=== PATIENT | male | born 1955 | race African-American/Black ===

== ENCOUNTER 2016-06-18 20:27 | Observation (INO) | payer OTHER ==
[~2016-06-18] VITALS: Ht 170.2 cm; Wt 72.6 kg
[2016-06-18 20:00] VITALS: BP 129/81
[~2016-06-18 20:27] MED LIST: ATOR10TA PO; Aspirin PO; BACI3.5O24 OP; HYDR-523 PO; KEPP500 PO; LISI-652 PO; OMEP20CA4 PO
[2016-06-18] MEDS ORDERED: ASPIRIN 81MG TABLET PO STA (22:47)
[2016-06-18] MEDS ORDERED: NITROGLYCERIN 0.4MG TABLET SL SL PRN (23:00)
[2016-06-18 23:41] LABS: BASOPHILS % 0.6 % (0.0-2.0); EOSINOPHILS % 3.9 % (0.0-5.0); HEMATOCRIT. 38.4 % (42.0-52.0); HEMOGLOBIN. 12.5 g/dL (14.0-18.0); LYMPHOCYTES % 49.1 % (20.0-50.0); MEAN CORPUSCULAR HEMOGLOBIN 28.7 pg (28.0-32.0); MEAN CORPUSCULAR HGB CONC 32.5 g/dL (31.0-37.0); MEAN CORPUSCULAR VOLUME 88.3 fL (80.0-94.0); MEAN PLATELET VOLUME 9.4 fl (7.4-10.4); MONOCYTES % 6.9 % (2.0-8.0); NEUTROPHILS % 39.5 % (40.0-76.0); PLATELET 216 x1000/uL (130-400); RED BLOOD CELL COUNT 4.34 mill/uL (4.7-6.1); RED CELL DISTRIBUTION WIDTH 14.6 % (11.6-14.6); WHITE BLOOD COUNT 5.3 x1000/uL (4.5-11.0)
[2016-06-18 23:53] LABS: PARTIAL THROMBOPLASTIN TIME 30.7 sec (24.0-34.0); PROTHROMBIN TIME 10.1 sec
[2016-06-18 23:57] LABS: ALANINE AMINOTRANSFERASE 14 IU/L (13-61); ALBUMIN 3.3 g/dL (3.4-5.0); ANION GAP 14; CALCIUM 9.1 mg/dL (8.5-10.1); CARBON DIOXIDE 24 mEq/L (21-32); CHLORIDE 109 mEq/L (98-107); INDEX HEMOLYSI 2 (1-3); INDEX ICTERIC 1 (1-4); INDEX LIPEMIC 1 (1-3); LIPASE 67 IU/L (73-393); NT PRO B-TYPE NATRIURETIC PEP 30 pg/mL (5-125); TROPONIN I < 0.02 ng/mL (0.00-0.04); UREA NITROGEN BLOOD 9 mg/dL (7-21); eGFR > 60 mL/min (>60)
[2016-06-19] MEDS ORDERED: MORPHINE SULFATE 4 MG/ML CPJ (NOT FOR IM USE) IV ONE
[2016-06-19] MEDS ORDERED: ONDANSETRON HCL 4MG/2ML VIAL IV ONE
[2016-06-19 03:30] VITALS: BP 110/78
[2016-06-19 08:00] VITALS: BP 111/78
[2016-06-19] MEDS ORDERED: ONDANSETRON HCL 4MG/2ML VIAL IV PRN (08:45)
[2016-06-19] MEDS ORDERED: DEXTROSE 50% WATER 50ML SYRINGE IV PRN (08:45)
[2016-06-19] MEDS ORDERED: CLONIDINE 0.1MG TABLET PO PRN (08:45)
[2016-06-19] MEDS: INSULIN LISPRO 100 UNITS/ML SUBCUT SCH ×4 (08:58→20:36)
[2016-06-19] MEDS: ENOXAPARIN 40MG/0.4ML SYR SUBCUT SCH (09:42)
[2016-06-19] MEDS: ASPIRIN 81MG TABLET PO SCH (09:42)
[2016-06-19] MEDS: HYDROMORPHONE HCL/PF 2MG/ML CPJ IV PRN ×2 (09:43→20:31)
[2016-06-19 09:55] LABS: BASOPHILS % 0.6 % (0.0-2.0); EOSINOPHILS % 2.5 % (0.0-5.0); HEMATOCRIT. 36.5 % (42.0-52.0); HEMOGLOBIN. 12.2 g/dL (14.0-18.0); LYMPHOCYTES % 28.4 % (20.0-50.0); MEAN CORPUSCULAR HEMOGLOBIN 28.8 pg (28.0-32.0); MEAN CORPUSCULAR HGB CONC 33.3 g/dL (31.0-37.0); MEAN CORPUSCULAR VOLUME 86.5 fL (80.0-94.0); MONOCYTES % 8.6 % (2.0-8.0); NEUTROPHILS % 59.9 % (40.0-76.0); PLATELET 243 x1000/uL (130-400); RED BLOOD CELL COUNT 4.22 mill/uL (4.7-6.1); RED CELL DISTRIBUTION WIDTH 14.5 % (11.6-14.6); WHITE BLOOD COUNT 5.6 x1000/uL (4.5-11.0)
[2016-06-19 10:10] LABS: ANION GAP 11; CALCIUM 8.9 mg/dL (8.5-10.1); CARBON DIOXIDE 27 mEq/L (21-32); CHLORIDE 109 mEq/L (98-107); HDL CHOLESTEROL 71 mg/dL (40-59); INDEX HEMOLYSI 1 (1-3); INDEX ICTERIC 1 (1-4); INDEX LIPEMIC 1 (1-3); LDL CHOLESTEROL 102 mg/dL (5-100); PHOSPHORUS 3.1 mg/dL (2.5-4.9); TRIGLYCERIDE 95 mg/dL (0-150); UREA NITROGEN BLOOD 9 mg/dL (7-21); eGFR > 60 mL/min (>60)
[2016-06-19 12:00] VITALS: BP 118/70
[2016-06-19] MEDS: BLOOD SUGAR DIAGNOSTIC STRIP TEST SCH ×3 (12:23→20:36)
[2016-06-19 16:00] VITALS: BP 134/74
[2016-06-19 16:24] LABS: CREATINE KINASE 82 IU/L (39-308); CREATINE KINASE MB FRACTION 0.5 ng/mL (0.5-3.6); INDEX HEMOLYSI 1 (1-3); TROPONIN I < 0.02 ng/mL (0.00-0.04)
[2016-06-19 23:08] LABS: CREATINE KINASE 67 IU/L (39-308); CREATINE KINASE MB FRACTION < 0.5 ng/mL (0.5-3.6); INDEX HEMOLYSI 1 (1-3); TROPONIN I < 0.02 ng/mL (0.00-0.04)
[2016-06-20] VITALS: BP 128/73
[2016-06-20 04:00] VITALS: BP 138/78
[2016-06-20] MEDS: HYDROMORPHONE HCL/PF 2MG/ML CPJ IV PRN ×3 (06:01→22:18)
[2016-06-20] MEDS: BLOOD SUGAR DIAGNOSTIC STRIP TEST SCH ×4 (06:02→21:00)
[2016-06-20 07:03] LABS: CREATINE KINASE 63 IU/L (39-308); CREATINE KINASE MB FRACTION < 0.5 ng/mL (0.5-3.6); INDEX HEMOLYSI 1 (1-3); TROPONIN I < 0.02 ng/mL (0.00-0.04)
[2016-06-20] MEDS: INSULIN LISPRO 100 UNITS/ML SUBCUT SCH ×4 (07:28→21:00)
[2016-06-20 08:00] VITALS: BP 126/79
[2016-06-20] MEDS: ASPIRIN 81MG TABLET PO SCH (09:21)
[2016-06-20] MEDS: ENOXAPARIN 40MG/0.4ML SYR SUBCUT SCH (09:24)
[2016-06-20 12:00] VITALS: BP 139/83
[2016-06-20 16:00] VITALS: BP_SYST 122; BP_SYST 149; BP_DIAS 71; BP_DIAS 85
[2016-06-20 20:00] VITALS: BP 126/71
[2016-06-21] VITALS (7 sets, daily range): BP systolic 113–141; BP diastolic 72–83
[2016-06-21] MEDS: HYDROMORPHONE HCL/PF 2MG/ML CPJ IV PRN ×3 (07:04→21:45)
[2016-06-21] MEDS: BLOOD SUGAR DIAGNOSTIC STRIP TEST SCH ×4 (07:40→21:33)
[2016-06-21] MEDS: INSULIN LISPRO 100 UNITS/ML SUBCUT SCH ×4 (08:10→21:00)
[2016-06-21] MEDS ORDERED: NON FORMULARY PATIENT HOME MED EA XX SCH ×2 (09:00)
[2016-06-21] MEDS: ASPIRIN 81MG TABLET PO SCH (09:03)
[2016-06-21] MEDS: ENOXAPARIN 40MG/0.4ML SYR SUBCUT SCH (09:03)
[2016-06-22] VITALS: BP 116/73
[2016-06-22 04:00] VITALS: BP 126/73
[2016-06-22] MEDS: BLOOD SUGAR DIAGNOSTIC STRIP TEST SCH (06:16)
[2016-06-22] MEDS: INSULIN LISPRO 100 UNITS/ML SUBCUT SCH (07:44)
[2016-06-22] MEDS: ASPIRIN 81MG TABLET PO SCH (09:27)
[2016-06-22] MEDS: ENOXAPARIN 40MG/0.4ML SYR SUBCUT SCH (09:28)
[2016-06-22 09:29] VITALS: BP 117/79
[2016-06-22] MEDS: HYDROMORPHONE HCL/PF 2MG/ML CPJ IV PRN (09:29)
== END 2016-06-22 11:24 | disposition home or self-care (01) ==
LOC: ER 20:28 → 7WST 06-19 00:30 → INTOOBSV 06-19 00:30
PROVIDERS: ADMIT Hospitalist; ATTEND Hospitalist
DX: R07.89 Other chest pain (principal); E11.9 Type 2 diabetes mellitus without complications; J45.909 Unspecified asthma, uncomplicated; I50.9 Heart failure, unspecified; I25.10 Atherosclerotic heart disease of native coronary artery without angina pectoris; I10 Essential (primary) hypertension; F17.210 Nicotine dependence, cigarettes, uncomplicated; F10.10 Alcohol abuse, uncomplicated; E78.00 Pure hypercholesterolemia, unspecified; R56.9 Unspecified convulsions; G43.909 Migraine, unspecified, not intractable, without status migrainosus; R25.1 Tremor, unspecified; R04.0 Epistaxis; R35.1 Nocturia; M10.9 Gout, unspecified; F32.9 Major depressive disorder, single episode, unspecified; R55 Syncope and collapse; K80.20 Calculus of gallbladder without cholecystitis without obstruction; Z87.442 Personal history of urinary calculi; Z82.49 Family history of ischemic heart disease and other diseases of the circulatory system; Z59.0 Homelessness
CPT/HCPCS: 36415; 71010; 80048; 80053; 80061; 82550; 82553; 82962; 83690; 83735; 83880; 84100; 84484; 85025; 85610; 85730; 93005; 93306; 96372; 96374; 96375; 96376; 99285; G0378; J1170; J1650; J2270; J2405

== ENCOUNTER 2016-08-15 14:21 | Emergency (ER) | payer OTHER ==
[~2016-08-15] VITALS: Ht 170.2 cm; Wt 73.0 kg
[~2016-08-15 14:21] MED LIST changes: +ACET-3161 PO; +ALBU18HF2 ORI; +BENA1TAB69 PO; +CHOL50004 PO; +FERR-63 PO; +FOLI-43 PO; +GLIP10TA10 PO; -HYDR-523 PO; +METF500T4 PO; +NAPR-681 PO
[2016-08-15] MEDS ORDERED: ASPIRIN 81MG TABLET PO STA (15:28)
[2016-08-15] MEDS ORDERED: MORPHINE SULFATE 4 MG/ML CPJ (NOT FOR IM USE) IV STA (15:28)
[2016-08-15] MEDS ORDERED: ONDANSETRON HCL 4MG/2ML VIAL IV STA (15:28)
[2016-08-15] MEDS ORDERED: FUROSEMIDE 40MG/4ML VIAL IV STA (15:28)
[2016-08-15 16:03] LABS: BASOPHILS % 0.5 % (0.0-2.0); EOSINOPHILS % 1.5 % (0.0-5.0); HEMATOCRIT. 33.8 % (42.0-52.0); HEMOGLOBIN. 11.3 g/dL (14.0-18.0); LYMPHOCYTES % 35.7 % (20.0-50.0); MEAN CORPUSCULAR HEMOGLOBIN 28.9 pg (28.0-32.0); MEAN CORPUSCULAR VOLUME 86.4 fL (80.0-94.0); MEAN PLATELET VOLUME 8.7 fl (7.4-10.4); MONOCYTES % 7.6 % (2.0-8.0); NEUTROPHILS % 54.7 % (40.0-76.0); PLATELET 284 x1000/uL (130-400); RED BLOOD CELL COUNT 3.91 mill/uL (4.7-6.1)
[2016-08-15 16:09] LABS: CHLORIDE 104 mEq/L (98-107)
[2016-08-15 16:10] LABS: PROTHROMBIN TIME 10.3 sec
[2016-08-15 16:12] LABS: CARBON DIOXIDE 28 mEq/L (21-32)
[2016-08-15 16:19] LABS: CREATINE KINASE 59 IU/L (39-308); TROPONIN I < 0.02 ng/mL (0.00-0.04)
[2016-08-15 16:47] VITALS: BP 121/78
== END 2016-08-15 18:19 | disposition home or self-care (01) ==
LOC: ER 16:40 → CANBEDREQ 21:44
DX: R06.02 Shortness of breath (principal); R60.9 Edema, unspecified; I11.0 Hypertensive heart disease with heart failure; I50.9 Heart failure, unspecified; E11.9 Type 2 diabetes mellitus without complications; F17.200 Nicotine dependence, unspecified, uncomplicated; Z79.82 Long term (current) use of aspirin; Z79.899 Other long term (current) drug therapy
CPT/HCPCS: 36415; 71010; 80053; 82550; 83605; 83690; 83880; 84443; 84484; 85025; 85610; 85730; 87040; 93005; 93970; 96374; 96375; 99285; 99406; J1940; J2270; J2405

== ENCOUNTER 2016-08-31 22:30 | Emergency (ER) | payer OTHER ==
[~2016-08-31] VITALS: Ht 170.2 cm; Wt 73.0 kg
[2016-09-01 00:28] LABS: BASOPHILS % 0.7 % (0.0-2.0); EOSINOPHILS % 2.4 % (0.0-5.0); HEMATOCRIT. 37.5 % (42.0-52.0); HEMOGLOBIN. 12.4 g/dL (14.0-18.0); LYMPHOCYTES % 33.6 % (20.0-50.0); MEAN CORPUSCULAR HEMOGLOBIN 28.9 pg (28.0-32.0); MEAN CORPUSCULAR VOLUME 87.3 fL (80.0-94.0); MEAN PLATELET VOLUME 8.9 fl (7.4-10.4); MONOCYTES % 6.8 % (2.0-8.0); NEUTROPHILS % 56.5 % (40.0-76.0); PLATELET 248 x1000/uL (130-400); RED CELL DISTRIBUTION WIDTH 15.4 % (11.6-14.6)
[2016-09-01 00:34] LABS: PROTHROMBIN TIME 10.2 sec
[2016-09-01 00:44] LABS: CARBON DIOXIDE 29 mEq/L (21-32); CHLORIDE 106 mEq/L (98-107); TROPONIN I < 0.02 ng/mL (0.00-0.04)
[2016-09-01 05:15] VITALS: BP 113/62
== END 2016-09-01 05:47 | disposition home or self-care (01) ==
LOC: ER 22:31
DX: R05 Cough (principal); R60.0 Localized edema; J45.909 Unspecified asthma, uncomplicated; E11.9 Type 2 diabetes mellitus without complications; I10 Essential (primary) hypertension; F17.210 Nicotine dependence, cigarettes, uncomplicated; E78.00 Pure hypercholesterolemia, unspecified
CPT/HCPCS: 36415; 71010; 80053; 83880; 84484; 85025; 85610; 93005; 93970; 99285; Z7610